=== PATIENT | male | born 1995 | race Caucasian/White ===

== ENCOUNTER 2018-07-13 04:20 | Emergency (ER) | payer SELFPAY | END 2018-07-13 08:40 | disposition home or self-care (01) | LOC: FTE 04:20 | DX: S39.94XA Unspecified injury of external genitals, initial encounter (principal); X58.XXXA Exposure to other specified factors, initial encounter; Y92.9 Unspecified place or not applicable | CPT/HCPCS: 99283 ==

== ENCOUNTER 2018-07-15 11:47 | Emergency (ER) | payer SELFPAY | END 2018-07-15 15:44 | disposition home or self-care (01) | LOC: FTE 15:44 | DX: S31.501D Unspecified open wound of unspecified external genital organs, male, subsequent encounter (principal); W26.9XXD Contact with unspecified sharp object(s), subsequent encounter | CPT/HCPCS: 99281 ==